=== PATIENT | female | born 1950 | race Caucasian/White ===

== ENCOUNTER → 2023-08-07 10:00 | Outpatient (REF) | payer MEDICARE, SELFPAY | LOC: WDC 10:00 | PROVIDERS: ATTENDING PHYSICIAN Internal Medicine | DX: Z12.31 Encounter for screening mammogram for malignant neoplasm of breast (principal) | CPT/HCPCS: 77063; 77067 ==

== ENCOUNTER → 2024-08-20 14:20 | Outpatient (REF) | payer MEDICARE, SELFPAY | LOC: WDC 14:20 | PROVIDERS: ATTENDING PHYSICIAN Internal Medicine | DX: Z12.31 Encounter for screening mammogram for malignant neoplasm of breast (principal) | CPT/HCPCS: 77063; 77067 ==